=== PATIENT | male | born 1980 | race Hispanic/Latino ===

== ENCOUNTER 2020-11-10 07:34 | Outpatient (CLI) | payer BC | END 2020-11-10 07:35 | disposition home or self-care (01) | LOC: CSHCT 07:34 | PROVIDERS: ATTEND Internal Medicine Hematology & Oncology | DX: C20 Malignant neoplasm of rectum (principal); R91.1 Solitary pulmonary nodule | CPT/HCPCS: 71260; 74160 ==

== ENCOUNTER 2021-06-21 12:23 | Outpatient (CLI) | payer BC | END 2021-06-21 12:24 | disposition home or self-care (01) | LOC: CSHMRI 12:23 | PROVIDERS: ATTEND Surgery | DX: C20 Malignant neoplasm of rectum (principal); R59.0 Localized enlarged lymph nodes | CPT/HCPCS: 72197 ==

== ENCOUNTER 2021-08-18 08:03 | Outpatient (CLI) | payer BC | END 2021-08-18 08:04 | disposition home or self-care (01) | LOC: CSHWCC 08:03 | PROVIDERS: ATTEND Nurse Practitioner Family | DX: C20 Malignant neoplasm of rectum (principal); K60.2 Anal fissure, unspecified; Z93.3 Colostomy status | CPT/HCPCS: 99202; G0463 ==

== ENCOUNTER 2021-08-30 08:32 | Outpatient (CLI) | payer BC | END 2021-08-30 08:33 | disposition home or self-care (01) | LOC: CSHCT 08:32 | PROVIDERS: ATTEND Internal Medicine Hematology & Oncology | DX: C20 Malignant neoplasm of rectum (principal); Z93.3 Colostomy status; R91.8 Other nonspecific abnormal finding of lung field | CPT/HCPCS: 71260; 74177 ==

== ENCOUNTER 2021-09-02 08:28 | Outpatient (CLI) | payer BC | END 2021-09-02 08:29 | disposition home or self-care (01) | LOC: CSHWCC 08:28 | PROVIDERS: ATTEND Nurse Practitioner Family | DX: K60.2 Anal fissure, unspecified (principal); C20 Malignant neoplasm of rectum; Z93.3 Colostomy status | CPT/HCPCS: 99212; G0463 ==

== ENCOUNTER 2022-01-30 08:55 | Outpatient (CLI) | payer BC ==
[2022-01-30] MEDS ORDERED: Iopamidol 300 61% 100 ML VIAL FS ONE (09:59)
== END 2022-01-30 08:56 | disposition home or self-care (01) ==
LOC: CSHCT 08:55
PROVIDERS: ATTEND Internal Medicine Hematology & Oncology
DX: C20 Malignant neoplasm of rectum (principal); K94.09 Other complications of colostomy; R59.0 Localized enlarged lymph nodes; R91.8 Other nonspecific abnormal finding of lung field
CPT/HCPCS: 71260; 74177

== ENCOUNTER 2023-07-06 09:58 | Outpatient (CLI) | payer BC ==
[2023-07-06] MEDS ORDERED: Iopamidol 300 61% 100 ML VIAL FS ONE (12:46)
== END 2023-07-06 09:59 | disposition home or self-care (01) ==
LOC: CSHCT 09:58
PROVIDERS: ATTEND Internal Medicine Hematology & Oncology
DX: C20 Malignant neoplasm of rectum (principal)
CPT/HCPCS: 71260; 74177; Q9967

== ENCOUNTER 2024-06-09 08:09 | Outpatient (CLI) | payer BC ==
[2024-06-09] MEDS ORDERED: Iopamidol 370 76% 100 ML VIAL ONE (09:41)
== END 2024-06-09 08:10 | disposition home or self-care (01) ==
LOC: CSHCT 08:09
PROVIDERS: ATTEND Internal Medicine Hematology & Oncology
DX: C20 Malignant neoplasm of rectum (principal)
CPT/HCPCS: 71260; 74177